=== PATIENT | male | born 1940 | race Caucasian/White ===

== ENCOUNTER 2017-09-30 06:00 | Day surgery (SDC) | payer OTHER ==
[~2017-09-30] VITALS: Ht 167.6 cm; Wt 100.2 kg
[~2017-09-30 06:00] MED LIST: ASPIR 8181 MG PO; ATENOLOL100 MG PO; GABAPENT PO; ZOCOR40 MG PO
[2017-10-01] MEDS ORDERED: INTEGRA PLUS C1 EACH PO (08:42)
[2017-10-01] MEDS ORDERED: DUI500 PO (08:42)
[2017-10-01] MEDS ORDERED: OXYC1TAB9 PO (08:42)
== END 2017-10-01 08:39 | disposition home or self-care (01) ==
LOC: SURH 06:00 → CIR.AMB 06:00 → O/R 06:00 → SURH 09:00 → EDSTATUS 09:00 → SURH 11:00 → SURG 16:05 → O/R 16:05 → CIR.AMB 10-01 08:39 → SURG 10-01 09:34 → O/R 10-01 09:34
DX: S42.222A 2-part displaced fracture of surgical neck of left humerus, initial encounter for closed fracture (principal)
CPT/HCPCS: 23615; C1776